=== PATIENT | male | born 1960 | race Caucasian/White ===

== ENCOUNTER 2018-05-04 17:57 | Emergency (ER) | payer OTHER ==
[~2018-05-04] VITALS: Ht 180.3 cm; Wt 86.2 kg
[~2018-05-04 17:57] MED LIST: PERCOCET 325 MG1 TA2 PO; VALIUM5 M1 PO
[2018-05-04 18:26] LABS: ABSOLUTE BASOPHIL COUNT 0.1 /CUMM (0.0-0.2); ABSOLUTE EOSINOPHIL COUNT 0.3 /CUMM (0.0-0.7); ABSOLUTE GRANULOCYTE CT 5.1 /CUMM (1.4-6.5); ABSOLUTE MONOCYTE COUNT 0.9 /CUMM (0.10-0.60); BASOPHIL % 0.8 % (0.0-2.0); EOSINOPHIL % 2.9 % (0-5); GRANULOCYTE % 54.5 % (42.2-75.2); HEMATOCRIT 44.8 % (42-52); MEAN CORPUSCULAR HGB 30.5 PG (27.0-31.0); MEAN CORPUSCULAR HGB CONC 34.2 G/DL (33.0-37.0); MEAN CORPUSCULAR VOLUME 89.1 FL (80.0-94.0); MEAN PLATELET VOLUME 8.5 FL (7.4-10.4); PLATELET COUNT 188 /CUMM (130-400); RBC DISTRIBUTION WIDTH 13.4 % (11.5-14.5); RED BLOOD CELL CT 5.03 /CUMM (4.70-6.10); WHITE BLOOD CELL COUNT 9.4 /CUMM (4.8-10.8)
--- NOTE | 2018-05-04 18:54 | ED CARDIAC/CP/PALPITATIONS ---
History of Present Illness General Chief Complaint: Chest Pain Stated Complaint: PT IS HAVING CHEST PAIN AND TINGLING IN LT ARM Source: patient Exam Limitations: no limitations Vital Signs & Intake/Output Vital Signs & Intake/Output Vital Signs Date Time Temp Pulse Resp B/P B/P Pulse O2 O2 Flow FiO2 Mean Ox Delivery Rate 05/048 71 20 135/78 98 05/04 1839 98 Room Air 05/04 1814 98.6 70 18 144/88 97 Room Air Allergies Coded Allergies: NO KNOWN ALLERGIES (01/16/13) Reconcile Medications No Known Home Medications Triage Note: 57M TO ED W 2-3 DAYS IF LEFT SIDED CHEST TIGHTNESS, RADIATES PARASTHESIAS INTO LEFT ARM. DENIES RADIATION INTO BACK OR NECK. -N/V/D OR SOB/SEGURA. +SMOKER, DENIES CARDIAC HX. DENIES NECK PAIN OR RECENT STRENUOUS ACTIVITY. DESCRIBES THE PAIN "MAYBE LIKE I PULLED A MUSCLE", NON-REPRODUCIBLE. RRR APICALLY Triage Nurses Notes Reviewed? yes HPI: 57M no PMH presenting with intermittent left sided chest pain with hand tingling occuring 2-3x/day for the past 3 days. The pain is not substernal and does not radiate. He rates it as mild-moderate. It is not associated with SOB, diaphoresis, lightheadedness. It is not exertional. He has no cardiac history, and no history of HTN, DM, or dyslipidemia. His father had an [place] at age 58. He has smoked 1 PPD for several decades. He is currently asymptomatic and has no complaints. Past History Travel History Traveled to [place] past 21 day No Medical History Any Pertinent Medical History? see below for history Surgical History Surgical History: non-contributory Psychosocial History What is your primary language Turkish Tobacco Use: Current Daily Use Daily Tobacco Use Amount/Type: => 5 Cigarettes daily ETOH Use: occasional use Illicit Drug Use: denies illicit drug use Family History Hx Contributory? No Review of Systems Review of Systems Constitutional: Reports: no symptoms. EENTM: Reports: no symptoms. Respiratory: Reports: no symptoms. Cardiovascular: Reports: no symptoms. GI: Reports: no symptoms. Genitourinary: Reports: no symptoms. Musculoskeletal: Reports: no symptoms. Skin: Reports: no symptoms. Neurological/Psychological: Reports: no symptoms. Hematologic/Endocrine: Reports: no symptoms. Immunologic/Allergic: Reports: no symptoms. All Other Systems: Reviewed and Negative Physical Exam Physical Exam General Appearance: well developed/nourished, no apparent distress Head: atraumatic, normal appearance Eyes: Bilateral: normal appearance. Ears, Nose, Throat: normal ENT inspection, hearing grossly normal Neck: normal inspection, supple, full range of motion Respiratory: normal breath sounds, no respiratory distress Cardiovascular: regular rate/rhythm Gastrointestinal: soft, non-tender Back: normal inspection, normal range of motion Extremities: normal inspection, normal range of motion Neurologic/Psych: awake, alert, oriented x 3, normal mood/affect Skin: intact, normal color, warm/dry Core Measures ACS in differential dx? Yes CVA/TIA Diagnosis No Sepsis Present: No Sepsis Focused Exam Completed? No Progress Differential Diagnosis: AMI, aortic dissection, atrial fibrillation, cholecystitis, CHF/pulm edema, costochondritis, hyperkalemia, hypovolemia, hyperthyroid, hyperventilation, intracranial hemorrhage, musculoskeletal pain, myocarditis, pancreatitis, pericarditis, pneumonia, pneumothorax, PSVT, pulmonary embolism, PUD/GERD, PVCs/PACs, respiratory failure, rib fracture, sepsis, unstable angina, V-fib/V-Tach, WPW syndrome Plan of Care: Orders Procedure Date/time Status TROPONIN LEVEL 05/04 2130 Active EKG 05/04 2130 Active Add-on Test (ER Only) 05/04 1854 Active THYROID STIMULATING HORMONE 05/04 1810 Complete TROPONIN LEVEL 05/04 181 Complete MAGNESIUM 05/04 181 Complete LIPID PANEL 05/04 181 Complete COMPREHENSIVE METABOLIC PANEL 05/04 181 Complete CBC WITHOUT DIFFERENTIAL 05/04 1810 Complete EKG 05/04 1759 Active Laboratory Tests 05/04/182129: Troponin I Pending 05/04/181809: Anion Gap 10, Estimated GFR > 60, BUN/Creatinine Ratio 15.7, Glucose 90, Calcium 9.6, Magnesium 1.8, Total Bilirubin 0.7, AST 95 H, ALT 78 H, Alkaline Phosphatase 115, Troponin I < 0.01, Total Protein 8.0, Albumin 4.0, Globulin 4.0 , Albumin/Globulin Ratio 1.0 L, Triglycerides 94, Cholesterol 190, LDL Cholesterol, Calc 96, HDL Cholesterol 76 H, Cholesterol/HDL Ratio 3, TSH 4.260 H, CBC w Diff NO MAN DIFF REQ, RBC 5.03, MCV 89.1, MCH 30.5, MCHC 34.2, RDW 13.4 , MPV 8.5, Gran % 54.5, Lymphocytes % 32.3, Monocytes % 9.5 H, Eosinophils % 2.9, Basophils % 0.8, Absolute Granulocytes 5.1, Absolute Lymphocytes 3.0, Absolute Monocytes 0.9 H, Absolute Eosinophils 0.3, Absolute Basophils 0.1 Initial ED EKG: normal sinus rhythm, no ST T wave changes Repeat EKG: unchanged Departure Departure Disposition: HOME OR SELF CARE Condition: Stable Clinical Impression Primary Impression: Chest wall pain Referrals: Felicity MAYEN,Dioni Max (PCP/Family) Blanquita MAYEN PHD,Karel Lauren Additional Instructions: Follow up with the salesperson shoes. Return to ER if new or worsening symptoms. We encourage you to quit smoking and talk to your doctor about ways to help. Departure Forms: Customer Survey General Discharge Information Prescriptions: Current Visit Scripts No Known Home Medications Critical Care Note Critical Care Note Critical Care Time: non-applicable
[2018-05-04 21:28] VITALS: BP 135/78
== END 2018-05-04 22:11 ==
LOC: ERH 17:57
PROVIDERS: Physician Assistant
DX: R07.89 Other chest pain (principal)
CPT/HCPCS: 93005; 93010